=== PATIENT | female | born 1970 | race Caucasian/White ===

== ENCOUNTER → 2017-06-17 | Outpatient (CLI) | payer OTHER | LOC: BRMIMAGING 14:37 | PROVIDERS: ATTEND Family Medicine | DX: Z12.31 Encounter for screening mammogram for malignant neoplasm of breast (principal) | CPT/HCPCS: G0202 ==

== ENCOUNTER 2018-07-18 14:04 | Emergency (ER) | payer OTHER ==
[2018-07-18] MEDS ORDERED: ACETAMINOPHEN 500 MG TAB PO ONE (15:29)
[2018-07-18] MEDS ORDERED: LABETALOL HCL 5 MG/ML 20 ML MDV IVP ONE (15:29)
--- NOTE | 2018-07-18 15:31 | EDPHY ---
H & P Stated Complaint: High BP (160's/110). Time Seen by Provider: 07/18/18 15:11 HPI/ROS: 47 yo F presents c/o low grade headache, blurred vision and high blood pressure for about 5 days. She states she went to an outside ER 4 days ago but it was so crowded she was unable to wait. She also attempted to make an appointment with her primary care who insisted she go to the emergency department. She states she was recently started on and the medication Strattera and feels that that is contributing to this higher blood pressure. No difficulty with speech, no numbness weakness or tingling in her extremities and no difficulty with walking. Review of systems As per HPI General no fever no chills no weakness HEENT no eye pain no eye discharge. No eye redness, no sore throat Respiratory no cough, no shortness of breath Cardiac no chest pain, no peripheral edema GI no abdominal pain, no diarrhea, no constipation, no nausea, no vomiting no flank pain, no hematuria, no dysuria Musculoskeletal no myalgias, no joint pain Heme no easy bruising, no easy bleeding Endo no polyuria, no polydipsia Skin no rashes, no pruritus Neuro no syncope, no dizziness, positive headaches Psych is no suicidal ideation, no homicidal ideation Source: Patient Exam Limitations: No limitations - Personal History LMP (Females 10-55): 15-21 Days Ago Current Tetanus Diphtheria and Acellular Pertussis (TDAP): Yes Tetanus Vaccine Date: within 10 years - Medical/Surgical History Hx Asthma: No Hx Chronic Respiratory Disease: No Hx Diabetes: No Hx Cardiac Disease: No Hx Renal Disease: No Hx Cirrhosis: No Hx Alcoholism: No Hx HIV/AIDS: No Hx Splenectomy or Spleen Trauma: No Other PMH: Occasional UTI, 4 c sections. Left knee torn meniscus, lft wrist repair,appy,rex,tubes tied, meniers, migraine, depression,pylonephritis 6 months ago,kidney stone - Family History Significant Family History: No pertinent family hx - Social History Smoking Status: Never smoked Alcohol Use: Rarely Drug Use: None - Physical Exam Exam: 47-year-old female alert and oriented no acute distress nontoxic appearance afebrile Blood pressure currently 155/112 HEENT atraumatic normocephalic, extraocular muscles intact, anicteric Fundus is visualized, no evidence of edema, no arterial nicking Oropharynx negative for erythema negative exudate, tolerating her own secretions Neck supple no meningismus Lungs clear to auscultation bilaterally Heart regular rate and rhythm without murmur rub or gallop Abdomen nondistended normoactive bowel sounds soft nontender Back no CVA tenderness, no step-offs, no spinal tenderness Extremities no cyanosis clubbing or edema Neuro alert and oriented, no focal deficits Constitutional: Initial Vital Signs Temperature (C) 36.7 C 07/18/18 14:10 Heart Rate 101 H 07/18/18 14:10 Respiratory Rate 16 07/18/18 14:10 Blood Pressure 161/112 H 07/18/18 14:10 O2 Sat (%) 96 07/18/18 14:10 O2 Delivery Mode Room Air Allergies/Adverse Reactions: ertapenem [From Invanz] Allergy (Verified 07/18/18 14:16) Pt reports hives and face swelling piperacillin [From Zosyn] Allergy (Verified 07/18/18 14:16) Pt reports facial swelling, hives tazobactam [From Zosyn] Allergy (Verified 07/18/18 14:16) Pt reports facial swelling, hives Home Medications: Medication Instructions Recorded Prozac 10 MG (*) 07/18/18 Strattera 07/18/18 Medical Decision Making - Diagnostics Imaging Results: Imaging Impressions Chest X-Ray 07/18/18 15:29 Impression: Normal. ED Course/Re-evaluation: Patient seen and evaluated for complaint of headache blurred vision and elevated blood pressure. The symptoms started when starting a new medication called Strattera. Visual acuity 20/20 bilaterally IV established, labs drawn CBC normal BMP normal Troponin negative EKG normal sinus rhythm Chest x-ray normal no cardiomegaly Patient given 1 dose of IV labetalol 5 mg Blood pressure 148/89, pulse 77 Patient also given acetaminophen 975 mg, ondansetron 4 mg. Her headache resolved Impression Hypertension likely as a side effect of new medication No signs of end-stage hypertension on EKG, chest x-ray, BMP, urine dip Patient feeling markedly improved discharged home Plan Stopped Strattera Follow-up with primary care and with Psychiatry as planned Differential Diagnosis: Differential diagnosis considered but not limited to: Hypertension, hypertensive urgency, hypertensive emergency, medication adverse reaction, myocardial infarction, cerebrovascular accident, migraine - Data Points Laboratory Results: 07/18/18 07/18/18 16:12 16:11 POC Sodium 143 mEq/L mEq/L (135-145) POC Potassium 3.6 mEq/L mEq/L (3.3-5.0) POC Chloride 104.0 mEq/L mEq/L (97-110) POC Total CO2 29 mEq/L mEq/L (22-31) POC BUN 7 mg/dL mg/dL (7-23) POC Creatinine 0.8 mg/dL mg/dL (0.6-1.0) POC Glucose 95 mg/dL mg/dL (70-100) POC Calcium 9.5 mg/dL mg/dL (8.5-10.4) POC Troponin I 0.00 ng/mL ng/mL (0.00-0.08) Medications Given: Discontinued Medications Acetaminophen (Tylenol) 1,000 mg PO EDNOW ONE Stop: 07/18/18 15:30 Last Admin: 07/18/18 16:42 Dose: Not Given Acetaminophen (Tylenol) 975 mg PO EDNOW ONE Stop: 07/18/18 15:56 Last Admin: 07/18/18 15:56 Dose: 975 mg Labetalol HCl (Trandate Injection) 5 mg IVP ONCE ONE Stop: 07/18/18 15:30 Last Admin: 07/18/18 16:08 Dose: 5 mg Ondansetron HCl (Zofran) 4 mg IVP EDNOW ONE Stop: 07/18/18 16:11 Last Admin: 07/18/18 16:18 Dose: 4 mg Point of Care Test Results: CBC CBC Collection Date 07/18/18 CBC Collection Time 16:04 WBC 9.0 RBC 5.18 HGB 15.2 HCT 44.2 PLT 242 Neut # 6.1 Neut 67.8 LYMPH # 2.6 LYMPH 28.5 Other WBC # 0.3 Other WBC 3.7 MCV 85.3 Chemistry 07/18/18 07/18/18 16:12 16:11 POC Sodium 143 mEq/L mEq/L (135-145) POC Potassium 3.6 mEq/L mEq/L (3.3-5.0) POC Chloride 104.0 mEq/L mEq/L (97-110) POC Total CO2 29 mEq/L mEq/L (22-31) POC BUN 7 mg/dL mg/dL (7-23) POC Creatinine 0.8 mg/dL mg/dL (0.6-1.0) POC Glucose 95 mg/dL mg/dL (70-100) POC Calcium 9.5 mg/dL mg/dL (8.5-10.4) POC Troponin I 0.00 ng/mL ng/mL (0.00-0.08) Urine Dip Collection Date 07/18/18 Collection Time 16:30 Specific [place] (1.002-1.030) 1.015 PH (5.0-7.5) 7.0 Leukocytes (Negative) Negative Nitrites (Negative) Negative Protein (Negative) Negative Glucose (Negative) Negative Ketones (Negative) Negative Urobilnogen (0.2-1.0 EU) 0.2 Bilirubin (Negative) Negative Blood (Negative) Negative Departure - Departure Disposition: Home, Routine, Self-Care Clinical Impression: Hypertension Condition: Good Instructions: Hypertension (ED) Referrals: Izabel Dawson MD [Primary Care Provider] - As per Instructions
[2018-07-18] MEDS ORDERED: ACETAMINOPHEN 325 MG TAB ONE (15:50)
[2018-07-18] MEDS ORDERED: ACETAMINOPHEN 325 MG TAB PO ONE (15:55)
[2018-07-18] MEDS ORDERED: ONDANSETRON 4 MG/2 ML VIAL IVP ONE (16:10)
--- NOTE | 2018-07-18 16:48 | CPEKG ---
Test Reason : OPEN Blood Pressure : / mmHG Vent. Rate : 083 BPM Atrial Rate : 085 BPM P-R Int : 170 ms QRS Dur : 085 ms QT Int : 383 ms P-R-T Axes : 066 053 049 degrees QTc Int : 450 ms Sinus rhythm Confirmed by Salma Delatorre ([id number]) on 07/18/2018 4:47:18 PM Referred By: Confirmed By:Salma Delatorre
[2018-07-18 17:49] VITALS: BP 138/91
== END 2018-07-18 17:13 | disposition home or self-care (01) ==
LOC: CED 14:04
DX: I10 Essential (primary) hypertension (principal)
CPT/HCPCS: 71046-PO; 80048-PO; 84484-PO; 96374; J2405

== ENCOUNTER → 2018-07-25 | Outpatient (CLI) | payer OTHER | LOC: BRMIMAGING 10:58 | PROVIDERS: ATTEND Family Medicine | DX: Z12.31 Encounter for screening mammogram for malignant neoplasm of breast (principal) ==